=== PATIENT | male | born 1955 | race Caucasian/White ===

== ENCOUNTER 2016-10-13 17:13 | Emergency (ER) | payer BC ==
--- NOTE | 2016-10-13 17:28 | Emergency Department Record ---
History of Present Illness - General Chief Complaint: General Stated Complaint: DIFF FORMING SENTENCES,BLURRED VISION Time Seen by Provider: 10/13/16 17:28 Source: Patient Mode of Arrival: Ambulatory Limitations: No limitations - History of Present Illness Initial comments: The patient is here due to a 9 hour hx of difficulty speaking and getting the words out today. He also is having mild blurred vision. His called him at noon today and she noticed it then but the patient states is started at 8:30 am. He denies any weakness or balance issues but states his R hand feels a little funny. He and his deny any recent illnesses or injuries or any hx of similar issues. Onset/Timin -: Hour(s) - [place] Coma Scale Eye Response: (4) Open spontaneously Motor Response: (6) Obeys commands Verbal Response: (5) Oriented [place] Total: 15 - Related Data Home Medications Medication Instructions Recorded Confirmed Last Taken No Home Med [NO HOME MEDS] 10/13/16 10/13/16 Unknown Allergies Allergy/AdvReac Type Severity Reaction Status Date / Time No Known Drug Allergies Allergy Verified 10/13/16 17:18 Travel Screening - Travel/Exposure Within Last 30 Days Have you traveled within the last 30 days?: No - Travel/Exposure Within Last Year Have you traveled outside the [place] in the last year?: No - Additonal Travel Details Have you been exposed to anyone with a communicable illness?: No - Travel Symptoms Symptom Screening: None Review of Systems Constitutional: Denies: Chills, Fever Eyes: Denies: Eye discharge ENT: Denies: Congestion Respiratory: Denies: Cough Cardiovascular: Denies: Arrhythmia Endocrine: Denies: Fatigue Gastrointestinal: Denies: Abdominal pain Genitourinary: Denies: Frequency Musculoskeletal: Denies: Back pain Skin: Denies: Bruising Past Medical History - SOCIAL HISTORY Smoking Status: Current every day smoker Alcohol Use: Occassional Alcohol Use Comment: 1 - 2 beers weekly Drug Use: Occassional Drug Use Detail:: Marijuana - RESPIRATORY Hx Respiratory Disorders: No - CARDIOVASCULAR Hx Cardio Disorders: No - NEURO Hx Neuro Disorders: No - GI Hx GI Disorders: No - Hx Genitourinary Disorders: No - ENDOCRINE Hx Endocrine Disorders: No - MUSCULOSKELETAL Hx Musculoskeletal Disorders: No - PSYCH Hx Psych Problems: No - HEMATOLOGY/ONCOLOGY Hx Hematology/Oncology Disorders: No Family Medical History Any Significant Family History?: No Physical Exam - General General Appearance: Alert, Oriented x3, Cooperative, No acute distress (There is an intermittent mild expressive aphasia.) - Head Head exam: Atraumatic, Normocephalic, Normal inspection - Eye Eye exam: Normal appearance, PERRL - ENT Throat exam: Normal inspection. negative: Tonsillar erythema, Tonsillar exudate - Neck Neck exam: Normal inspection, Full ROM, Other (Neg bruits.). negative: Lymphadenopathy, Meningismus, Tenderness - Respiratory Respiratory exam: Normal lung sounds bilaterally. negative: Respiratory distress - Cardiovascular Cardiovascular Exam: Regular rate, Normal rhythm, Normal heart sounds - GI/Abdominal GI/Abdominal exam: Soft, Normal bowel sounds. negative: Tenderness - Extremities Extremities exam: Normal inspection, Full ROM, Normal capillary refill. negative: Tenderness - Neurological Neurological exam: Alert, CN II-XII intact, Normal gait, Oriented X3, Other ( Neg Drift and Rhomberg exams.). negative: Abnormal gait, Altered, Motor sensory deficit - Skin Skin exam: negative: Rash Course Vital Signs 10/13/16 17:17 Temperature 97.9 F Pulse Rate 86 Respiratory 20 Rate Blood Pressure 130/99 Pulse Ox 97 - Reevaluation(s) Reevaluation #1: The patient is doing well at this time. He is resting comfortably with no new complaints. He is still having an intermittent mild expressive aphasia and does feel like his R arm is a little funny. 10/13/16 18:05 Reevaluation #2: I did discuss the case with Dr. Green at [facility] with the Stroke team. He agrees to the transfer and accepts the transfer. 10/13/16 18:13 Reevaluation #3: The patient is doing better at this time. His speech has improved minimally and he denies any pain or discomfort. 10/13/16 18:44 Medical Decision Making - Data Complexity MDM Data: Labs Ordered and/or Reviewed, X-Ray Ordered and/or Reviewed, EKG Ordered and/or Reviewed - Lab Data Result diagrams: 10/13/16 17:35 10/13/16 17:35 - EKG Data -: EKG Interpreted by Me (NSR at 78 with RBBB.) - Radiology Data Radiology results: Report reviewed (Head CT: Normal per Rad.) Disposition Disposition: Transfer Clinical Impression: CVA (cerebral vascular accident) Qualifiers: CVA mechanism: other Qualified Code(s): I63.8 - Other cerebral infarction Disposition: Acute Care Hospital Transfer Transfer To: [facility] Reason For Transfer: CVA acute Accepting Physician: Norma. Time Discussed w/Accepting Physician: 18:15 Condition: (2) Stable Instructions: Ischemic Stroke (GEN) Forms: Patient Portal Access Time of Disposition: 18:14
[2016-10-13 17:40] LABS: BASO % 0.4 % (0-6); EOS % 0.9 % (0-6); GRAN % 55.7 % (47-80); HEMATOCRIT 46.3 % (42.0-52.0); MEAN CELL VOLUME 85.4 fl (81-97); MEAN CORPUSCULAR HEMOGLOBIN 29.5 pg (27-33); MEAN CORPUSCULAR HGB CONC 34.6 g/dl (32-36); MEAN PLATELET VOLUME 9.4 fl (7.4-10.4); PLATELET COUNT 289 K/uL (130-400); RED BLOOD COUNT 5.42 M/uL (4.40-5.70); RED CELL DISTRIBUTION WIDTH 12.7 % (11.5-14.5); WHITE BLOOD COUNT W/O DIFF 11.1 K/uL (4.2-12.2)
[2016-10-13] MEDS ORDERED: ASPIRIN 325 MG TABLET PO ONE (17:50)
[2016-10-13 17:52] LABS: ALB/GLOB RATIO 1.6 (1.1-1.8); ALBUMIN 4.6 gm/dL (3.5-5.0); ALKALINE PHOSPHATASE 78 U/L (38-126); ALT/SGPT 33 U/L (21-72); AST/SGOT 19 U/L (17-59); BILIRUBIN,TOTAL 0.78 mg/dL (0.2-1.3); BLOOD UREA NITROGEN 13 mg/dL (9-20); CREATINE PHOSPHOKINASE 52 U/L (55-170); CREATININE 0.9 mg/dL (0.66-1.25); EST GLOMERULAR FILTRATION RATE > 60 ml/min; GLUCOSE,RANDOM 116 mg/dL (70-110); TOTAL PROTEIN 7.4 gm/dL (6.3-8.2)
[2016-10-13 17:53] LABS: INR 0.88; PARTIAL THROMBOPLASTIN TIME 26.1 SECONDS (24.5-39.1)
[2016-10-13 18:03] LABS: CKMB 0.6 ug/L (0-6)
[2016-10-13 18:04] LABS: TROPONIN I < 0.012 ng/mL (0.00-0.034)
--- NOTE | 2016-10-16 14:50 | CT SCAN REPORT ---
EXAM: CT OF THE BRAIN WITHOUT CONTRAST HISTORY: CONFUSION. TECHNIQUE: CT of the brain without contrast was obtained. Comparison: None. FINDINGS: The globes are intact. The paranasal sinuses and mastoid air cells are unremarkable. No displaced or depressed skull fracture. No intra or extraaxial hemorrhage. CT is limited for evaluation of acute infarct. No CT evidence for large or territorial acute infarct. No mass, mass effect, or midline shift. IMPRESSION: UNREMARKABLE CT OF THE BRAIN EXAMINATION. JOB NUMBER: [id number] [facility]
== END 2016-10-13 18:53 | disposition short-term general hospital (02) ==
LOC: ER 17:13
DX: I63.8 Other cerebral infarction (principal); R47.01 Aphasia; H53.8 Other visual disturbances; F17.210 Nicotine dependence, cigarettes, uncomplicated
CPT/HCPCS: 70450; 80053; 82550; 82553; 84484; 85025; 85610; 85730; 93005; 93010; 99285